=== PATIENT | female | born 1980 | race Caucasian/White ===

== ENCOUNTER 2021-03-24 17:34 | Emergency (ER) | payer OTHER ==
[2021-03-24] MEDS ORDERED: CLEOCIN HCL300 MG PO (19:07)
[2021-03-24] MEDS ORDERED: IBUPROFEN800 MG PO (19:07)
== END 2021-03-24 19:28 | disposition home or self-care (01) ==
LOC: ER1 17:34
DX: H61.22 Impacted cerumen, left ear (principal); H66.42 Suppurative otitis media, unspecified, left ear; K08.89 Other specified disorders of teeth and supporting structures; F17.200 Nicotine dependence, unspecified, uncomplicated; Z88.0 Allergy status to penicillin; Z88.8 Allergy status to other drugs, medicaments and biological substances
CPT/HCPCS: 69209; 99282